=== PATIENT | female | born 1960 | race Caucasian/White ===

== ENCOUNTER 2025-02-18 06:26 | Day surgery (SDC) | payer OTHER, SELFPAY | END 2025-02-18 15:39 | disposition home or self-care (01) | LOC: GI 06:26 | PROVIDERS: ATTENDING PHYSICIAN Internal Medicine | DX: Z12.11 Encounter for screening for malignant neoplasm of colon (principal); Z80.0 Family history of malignant neoplasm of digestive organs; K57.30 Diverticulosis of large intestine without perforation or abscess without bleeding; K64.8 Other hemorrhoids; D12.0 Benign neoplasm of cecum; K63.5 Polyp of colon; K62.1 Rectal polyp | CPT/HCPCS: 45385; 88305 ==

== ENCOUNTER → 2025-10-24 10:12 | Outpatient (REF) | payer OTHER, SELFPAY | LOC: WDC 10:12 | PROVIDERS: ATTENDING PHYSICIAN Family Medicine | DX: R22.31 Localized swelling, mass and lump, right upper limb (principal) | CPT/HCPCS: 76642; 77062; 77066 ==